=== PATIENT | female | born 1940 | race Caucasian/White ===

== ENCOUNTER 2019-01-04 06:42 | Day surgery (SDC) | payer MEDICARE, OTHER ==
[2019-01-04] VITALS (19 sets, daily range): BP systolic 86–159; BP diastolic 45–84
[~2019-01-04] VITALS: Ht 149.9 cm; Wt 53.0 kg
[2019-01-04] MEDS ORDERED: lidocaine 2% viscous 15 ML cup ***bronch room only MM ONE (06:53)
[2019-01-04] MEDS ORDERED: LIDOCAINE 4% (40MG/ML) topical solution 50ml **BRONCH ONLY ONE (06:53)
[2019-01-04] MEDS ORDERED: phenylephrine 1% Nasal spray (extra-strength) 15 ML bottle **bronch room NS ONE (06:53)
[2019-01-04] MEDS ORDERED: LIDOcaine Viscous 15ml cup MM ONE ×2 (07:05→07:15)
[2019-01-04] MEDS ORDERED: LIDOcaine 4% (40 mg/ml) topical solution 50ml TP ONE (07:05)
[2019-01-04] MEDS ORDERED: morphine 4 MG/ML inj SYRINge IM PRN (07:10)
[2019-01-04] MEDS ORDERED: phenylephrine 1% (X-tra strg) 15ml nasal spray NS ONE (07:10)
[2019-01-04] MEDS ORDERED: morphine 4 MG/ML inj SYRINge IM ONE (07:20)
[2019-01-04 07:24] LABS: BASOPHILS % (AUTO) 0.3 % (0-1); EOSINOPHILS # (AUTO) 0.1 X10'3 (0-0.9); EOSINOPHILS % (AUTO) 0.9 % (0-6); HEMATOCRIT 38.8 % (35.0-45.0); HEMOGLOBIN 12.6 g/dl (12.0-16.0); LYMPHOCYTES # (AUTO) 2.2 X10'3 (1.1-4.8); LYMPHOCYTES % (AUTO) 18.9 % (21-51); MEAN CORPUSCULAR HEMOGLOBIN 26.8 PG (27.0-31.0); MEAN CORPUSCULAR HGB CONC 32.4 g/dL (33.0-36.5); MEAN CORPUSCULAR VOLUME 82.8 FL (78-98); MEAN PLATELET VOLUME 7.7 FL (7.4-10.4); MONOCYTES # (AUTO) 0.5 X10'3 (0-0.9); NEUTROPHILS # (AUTO) 8.6 X10'3 (1.8-7.7); NEUTROPHILS % (AUTO) 75.9 % (42-75); PLATELET COUNT 557 X10'3 (140-440); RED BLOOD COUNT 4.69 X10'6 (4.20-5.60); RED CELL DISTRIBUTION WIDTH 14.9 % (11.5-14.5); WHITE BLOOD COUNT 11.4 X10'3 (4.5-11.0)
[2019-01-04] MEDS ORDERED: ESCI5TAB PO (07:26)
[2019-01-04] MEDS ORDERED: PRAV10TA39 PO (07:26)
[2019-01-04] MEDS ORDERED: OMEP-50 (07:26)
[2019-01-04] MEDS ORDERED: ALBU18HF2 INH (07:26)
[2019-01-04] MEDS ORDERED: BUDE10.2 INH (07:26)
[2019-01-04] MEDS ORDERED: HYDR-4353 PO (07:26)
[2019-01-04] MEDS ORDERED: MIDAZolam 5mg/5ml vial ONE (07:47)
[2019-01-04] MEDS ORDERED: fentaNYL/PF 50MCG/1 ML 2ML syringe ONE (07:48)
== END 2019-01-04 10:30 | disposition home or self-care (01) ==
LOC: SSTAY O 06:42
PROVIDERS: ATTEND Internal Medicine Pulmonary Disease
DX: C34.31 Malignant neoplasm of lower lobe, right bronchus or lung (principal); Z87.891 Personal history of nicotine dependence
CPT/HCPCS: 31623; 31628; 36415; 76499; 82378; 85025; 87070; 94640; 94760; J2250; J2270; J3010; 31622; 88108; 88173; 88305; 88341; 88342; 88360

== ENCOUNTER 2019-02-17 07:51 | Emergency (ER) | payer MEDICARE, OTHER ==
[~2019-02-17] VITALS: Ht 152.4 cm; Wt 50.0 kg
[~2019-02-17 07:51] MED LIST: ALBU18HF2 INH; BUDE10.2 INH; ESCI5TAB PO; HYDR-4353 PO; OMEP-50; PRAV10TA39 PO
[2019-02-17 09:18] LABS: CLARITY,URINE CLEAR (Clear); COLOR,URINE STRAW (Yellow); GLUCOSE, URINE NEGATIVE (Neg); KETONES,URINE NEGATIVE (Neg); LEUKOCYTE ESTERASE ,URINE NEGATIVE (Neg); NITRITES, URINE NEGATIVE (Neg); OCCULT BLOOD,URINE NEGATIVE (Neg); PH,URINE 5.5 (4.8-8.0); PROTEIN,URINE NEGATIVE (Neg); UROBILINOGEN,URINE 0.2 E.U/dL (0.2-1.0)
[2019-02-17 09:19] LABS: UA COLLECTION TYPE CLN CATCH MIDSTREAM
[2019-02-17 09:20] LABS: BASOPHILS % (AUTO) 0.4 % (0-1); EOSINOPHILS # (AUTO) 0.1 X10'3 (0-0.9); EOSINOPHILS % (AUTO) 0.5 % (0-6); HEMATOCRIT 38.1 % (35.0-45.0); HEMOGLOBIN 12.4 g/dl (12.0-16.0); LYMPHOCYTES # (AUTO) 0.3 X10'3 (1.1-4.8); LYMPHOCYTES % (AUTO) 2.8 % (21-51); MEAN CORPUSCULAR HEMOGLOBIN 26.4 PG (27.0-31.0); MEAN CORPUSCULAR HGB CONC 32.6 g/dL (33.0-36.5); MEAN CORPUSCULAR VOLUME 81.1 FL (78-98); MEAN PLATELET VOLUME 6.8 FL (7.4-10.4); MONOCYTES # (AUTO) 0.3 X10'3 (0-0.9); MONOCYTES % (AUTO) 3.1 % (2-12); NEUTROPHILS # (AUTO) 10.6 X10'3 (1.8-7.7); NEUTROPHILS % (AUTO) 93.2 % (42-75); PLATELET COUNT 251 X10'3 (140-440); RED CELL DISTRIBUTION WIDTH 17.4 % (11.5-14.5); WHITE BLOOD COUNT 11.4 X10'3 (4.5-11.0)
[2019-02-17 09:35] LABS: ALANINE AMINOTRANSFERASE 28 U/L (12-78); ALBUMIN 2.8 G/DL (3.4-5.0); ALBUMIN/GLOBULIN RATIO 0.7 (1.1-1.5); ALKALINE PHOSPHATASE 77 IU/L (46-116); ANION GAP 6 (8-16); ASPARTATE AMINO TRANSFERASE 21 U/L (10-37); BILIRUBIN,TOTAL 0.4 MG/DL (0.1-1.0); BLOOD UREA NITROGEN 33 MG/DL (7-18); BUN/CREATININE RATIO 37.1 (6.6-38.0); CHLORIDE 102 MMOL/L (99-107); CREATININE 0.89 MG/DL (0.40-0.90); GLUCOSE 79 MG/DL (70-104); POTASSIUM 3.9 MMOL/L (3.5-5.1); SODIUM 135 MMOL/L (135-145); TOTAL PROTEIN 6.7 G/DL (6.4-8.2); eGFR 61 ML/MIN
[2019-02-17] MEDS ORDERED: METH-360 PO (09:44)
[2019-02-17] MEDS ORDERED: orphenadrine citrate 60mg/2ml inj. IM ONE (09:45)
[2019-02-17] MEDS ORDERED: ketorolac tromethamine 15mg/ml inj. IM ONE (09:45)
[2019-02-17 10:07] VITALS: BP 127/84
[2019-02-18] MEDS ORDERED: MELA3TAB PO (17:11)
[2019-02-18] MEDS ORDERED: DEXA4TAB PO (17:11)
[2019-02-18] MEDS ORDERED: IBUP-1984 PO (17:11)
== END 2019-02-17 10:56 | disposition home or self-care (01) ==
LOC: ER 07:52
DX: M54.42 Lumbago with sciatica, left side (principal); M54.41 Lumbago with sciatica, right side; G89.29 Other chronic pain; Z79.899 Other long term (current) drug therapy; Z91.018 Allergy to other foods; Z98.890 Other specified postprocedural states
CPT/HCPCS: 36415; 80053; 81003; 85025; 96372; 99283; J1885; J2360

== ENCOUNTER 2019-02-18 14:14 | Inpatient (IN) | payer MEDICARE, OTHER | END 2019-02-24 13:10 | LOC: ER 14:14 → ED HOLD 18:40 → ORTHO 4S 20:10 | DX: C34.90 Malignant neoplasm of unspecified part of unspecified bronchus or lung (principal); E43 Unspecified severe protein-calorie malnutrition; C79.31 Secondary malignant neoplasm of brain; J44.9 Chronic obstructive pulmonary disease, unspecified; M54.9 Dorsalgia, unspecified ==